=== PATIENT | male | born 1995 | race Caucasian/White ===

== ENCOUNTER 2018-04-22 18:56 | Emergency (ER) | payer OTHER ==
[2018-04-22] MEDS: ONDANSETRON 4 MG ORAL DISINTEGRATING TAB (Q0162 PER 1MG) PO (20:49)
[2018-04-22] MEDS: PERCOCET 5MG/325MG TAB PO (20:49)
[2018-04-22] MEDS: AUGMENTIN 875 MG TAB PO (23:15)
[2018-04-22] MEDS: NORCO 5/325MG TABLET (BULK FOR ED) PO (23:15)
[2018-04-22] MEDS: IBUPROFEN 600 MG TAB PO (23:30)
== END 2018-04-22 23:42 | disposition home or self-care (01) ==
LOC: M ED 18:56
DX: S02.2XXA Fracture of nasal bones, initial encounter for closed fracture (principal); S02.69XA Fracture of mandible of other specified site, initial encounter for closed fracture; Y04.8XXA Assault by other bodily force, initial encounter; Y92.018 Other place in single-family (private) house as the place of occurrence of the external cause
CPT/HCPCS: Q0162

== ENCOUNTER 2018-05-01 16:49 | Emergency (ER) | payer OTHER | END 2018-05-01 18:46 | disposition home or self-care (01) | LOC: M ED 16:49 | DX: K08.89 Other specified disorders of teeth and supporting structures (principal); G89.18 Other acute postprocedural pain | CPT/HCPCS: 99283 ==